=== PATIENT | female | born 1935 | race Two or more races ===

== ENCOUNTER 2018-03-07 07:36 | Outpatient (CLI) | payer OTHER ==
[~2018-03-07 07:36] MED LIST: DIOVAN40 MG; NEURONTIN300 MG; NORVASC5 MG; SYNTHROID100 MCG; SYNTHROID150 MCG
== END 2018-03-07 07:44 | disposition home or self-care (01) ==
LOC: RX STUDY 07:36
DX: D63.8 Anemia in other chronic diseases classified elsewhere (principal); R19.5 Other fecal abnormalities